=== PATIENT | male | born 1950 | race African-American/Black ===

== ENCOUNTER → 2016-10-03 | Outpatient (CLI) | payer MEDICARE, MEDICAID ==
[~2016-10-03] VITALS: Ht 175.3 cm; Wt 90.7 kg
[~2016-10-03] MED LIST: DIPHENHYDRAMINE 50MG/ML VIAL IV ONE; DIPHENHYDRAMINE 50MG/ML VIAL IV SCH; DIPHENHYDRAMINE 50MG/ML VIAL ONE; FENTANYL CITRATE/PF 50MCG/ML 2ML VIAL IV ONE; FENTANYL CITRATE/PF 50MCG/ML 2ML VIAL IV SCH; FENTANYL CITRATE/PF 50MCG/ML 2ML VIAL ONE; LIDOCAINE HCL 1% 20ML VIAL (Pyxis) INJ ONE; SODIUM BICARBONATE 4.2% 5 MEQ/10 ML DISP.SYRIN IV ONE
[2016-10-03 10:34] VITALS: BP 111/68
[2016-10-03 10:46] VITALS: BP 115/69
[2016-10-03 11:00] VITALS: BP 125/65
[2016-10-03 11:12] VITALS: BP 104/62
== END | disposition home or self-care (01) ==
LOC: CT 09:47
PROVIDERS: ATTEND Internal Medicine Cardiovascular Disease
DX: R91.8 Other nonspecific abnormal finding of lung field (principal)
CPT/HCPCS: 32405; 71010; 71270; 77012; 88305; J3490; J1200; J3010

== ENCOUNTER 2019-07-04 06:52 | Emergency (ER) | payer MEDICARE, MEDICAID ==
[~2019-07-04] VITALS: Ht 177.8 cm; Wt 63.0 kg
[2019-07-04] MEDS ORDERED: CEFTRIAXONE SODIUM 1 G/VIAL IM ONE (08:15)
[2019-07-04] MEDS ORDERED: LIDOCAINE HCL 1% 20ML VIAL (Pyxis) INJ INFIL ONE (08:15)
[2019-07-04 09:55] VITALS: BP 106/71
== END 2019-07-04 10:11 | disposition home or self-care (01) ==
LOC: ER 06:52
DX: J18.9 Pneumonia, unspecified organism (principal); Z03.818 Encounter for observation for suspected exposure to other biological agents ruled out; M54.30 Sciatica, unspecified side; Z98.890 Other specified postprocedural states
CPT/HCPCS: 71045; 96372; 99283; J0696; J3490

== ENCOUNTER 2019-12-13 19:25 | Inpatient (IN) | payer MEDICARE, MEDICAID ==
[~2019-12-13] VITALS: Ht 165.1 cm; Wt 75.8 kg
[2019-12-13 19:25] VITALS: BP 93/63
[~2019-12-13 19:25] MED LIST changes: +ASPI-1497 MT; -DIPHENHYDRAMINE 50MG/ML VIAL IV ONE; -DIPHENHYDRAMINE 50MG/ML VIAL IV SCH; -DIPHENHYDRAMINE 50MG/ML VIAL ONE; -FENTANYL CITRATE/PF 50MCG/ML 2ML VIAL IV ONE; -FENTANYL CITRATE/PF 50MCG/ML 2ML VIAL IV SCH; -FENTANYL CITRATE/PF 50MCG/ML 2ML VIAL ONE; -LIDOCAINE HCL 1% 20ML VIAL (Pyxis) INJ ONE; -SODIUM BICARBONATE 4.2% 5 MEQ/10 ML DISP.SYRIN IV ONE
[2019-12-13 20:00] VITALS: BP 93/63
[2019-12-13] MEDS ORDERED: CLONIDINE 0.2MG TABLET PO PRN (20:30)
[2019-12-13] MEDS ORDERED: IPRATROPIUM/ALBUTEROL 0.5-3(2.5)MG/3ML NEB HHN PRN (20:30)
[2019-12-13] MEDS ORDERED: NALOXONE HCL 0.4 MG/ML 1ML VIAL IV PRN (20:30)
[2019-12-13] MEDS ORDERED: TRAMADOL 50MG TABLET PO PRN (20:30)
[2019-12-13] MEDS ORDERED: HYDROMORPHONE HCL/PF 2MG/ML CPJ IV PRN (20:30)
[2019-12-13] MEDS ORDERED: ONDANSETRON HCL 4MG/2ML INJ IV PRN (20:30)
[2019-12-13] MEDS ORDERED: OXYCODONE HCL/ACETAMINOPHEN 5/325MG TABLET PO PRN (20:30)
[2019-12-13] MEDS ORDERED: ACETAMINOPHEN 325MG TABLET PO PRN (20:30)
[2019-12-13] MEDS ORDERED: DIPHENHYDRAMINE 50MG/ML VIAL IV PRN (21:15)
[2019-12-13] MEDS: LACTULOSE 20G/30ML UDC PO SCH (21:44)
[2019-12-13] MEDS: GABAPENTIN 100MG CAPSULE PO SCH (21:44)
[2019-12-14] MEDS: IPRATROPIUM/ALBUTEROL 0.5-3(2.5)MG/3ML NEB HHN SCH ×4 (01:05→21:51)
[2019-12-14] MEDS: GABAPENTIN 100MG CAPSULE PO SCH ×3 (05:29→21:50)
[2019-12-14 06:39] LABS: HEMATOCRIT. 28.6 % (42.0-52.0); HEMOGLOBIN. 9.5 g/dL (14.0-18.0); MEAN CORPUSCULAR HEMOGLOBIN 29.4 pg (28.0-32.0); MEAN CORPUSCULAR VOLUME 88.8 fL (80.0-94.0); MEAN PLATELET VOLUME 8.9 fl (7.4-10.4); PLATELET 178 x1000/uL (130-400); RED BLOOD CELL COUNT 3.22 mill/uL (4.7-6.1); RED CELL DISTRIBUTION WIDTH 15.9 % (11.6-14.6)
[2019-12-14 06:50] LABS: CHLORIDE 110 mEq/L (98-107)
[2019-12-14 08:00] VITALS: BP 96/58
[2019-12-14] MEDS: LACTULOSE 20G/30ML UDC PO SCH ×4 (08:35→21:39)
[2019-12-14] MEDS: MIDODRINE HCL 2.5MG TABLET PO SCH ×3 (09:33→16:44)
[2019-12-14] MEDS: SODIUM HYPOCHLORITE 0.125% 473ML SOLUTION TOP SCH (09:35)
[2019-12-14] MEDS: LIDOCAINE 5% PATCH TOP SCH (09:50)
[2019-12-14 09:51] VITALS: BP 96/61
[2019-12-14] MEDS: HYDROCODONE/APAP 7.5/325MG 1 TAB TABLET PO PRN ×3 (09:51→22:47)
[2019-12-14 10:51] LABS: PLATELET ESTIMATE NORMAL
[2019-12-14] MEDS ORDERED: NA PHOS,M-B/NA PHOS,DI-BA ENEMA 118ML PR NR (11:15)
[2019-12-14 12:55] VITALS: BP 96/65
[2019-12-14] MEDS: DOCUSATE SODIUM 100MG CAPSULE PO SCH (16:44)
[2019-12-14 20:00] VITALS: BP 98/59
[2019-12-14] MEDS: POLYETHYLENE GLYCOL 3350 (17GM) 1 DOSE PACK PO SCH (21:44)
[2019-12-15] MEDS: IPRATROPIUM/ALBUTEROL 0.5-3(2.5)MG/3ML NEB HHN SCH ×4 (02:21→21:28)
[2019-12-15 06:06] LABS: HEMATOCRIT. 29.6 % (42.0-52.0); HEMOGLOBIN. 9.7 g/dL (14.0-18.0); MEAN CORPUSCULAR VOLUME 88.6 fL (80.0-94.0); MEAN PLATELET VOLUME 8.3 fl (7.4-10.4); PLATELET 218 x1000/uL (130-400); RED BLOOD CELL COUNT 3.34 mill/uL (4.7-6.1); RED CELL DISTRIBUTION WIDTH 15.8 % (11.6-14.6)
[2019-12-15 06:24] LABS: CHLORIDE 107 mEq/L (98-107)
[2019-12-15 06:33] LABS: TOTAL IRON BINDING CAPACITY 196 ug/dL (250-450)
[2019-12-15 06:37] LABS: PHOSPHORUS 3.6 mg/dL (2.5-4.9)
[2019-12-15 06:46] LABS: FOLIC ACID (FOLATE) SERUM >20 ng/mL ng/mL (>5.38)
[2019-12-15 06:58] LABS: VITAMIN B12 SERUM 1949 pg/mL (211-911)
[2019-12-15] MEDS: GABAPENTIN 100MG CAPSULE PO SCH ×3 (07:24→22:21)
[2019-12-15 07:50] LABS: FERRITIN 2248 ng/mL (22-322)
[2019-12-15 07:51] VITALS: BP 95/54
[2019-12-15] MEDS: MIDODRINE HCL 2.5MG TABLET PO SCH ×3 (09:17→16:15)
[2019-12-15] MEDS: DOCUSATE SODIUM 100MG CAPSULE PO SCH ×2 (09:17→16:15)
[2019-12-15] MEDS: LACTULOSE 20G/30ML UDC PO SCH ×2 (09:18→21:44)
[2019-12-15] MEDS: HYDROCODONE/APAP 7.5/325MG 1 TAB TABLET PO PRN ×2 (09:18→18:32)
[2019-12-15] MEDS: LIDOCAINE 5% PATCH TOP SCH (09:19)
[2019-12-15] MEDS: SODIUM HYPOCHLORITE 0.125% 473ML SOLUTION TOP SCH (09:20)
[2019-12-15] MEDS ORDERED: SORBITOL 70% SOLN 30ML PO NR (11:45)
[2019-12-15] MEDS ORDERED: MAGNESIUM CITRATE 300ML SOLUTION PO NR (13:00)
[2019-12-15] MEDS ORDERED: HYDROCORTISONE 1% RECTAL CREAM 30GM PR PRN (14:30)
[2019-12-15 18:18] LABS: PLATELET ESTIMATE NORMAL
[2019-12-15 20:00] VITALS: BP 97/52
[2019-12-15] MEDS ORDERED: NA PHOS,M-B/NA PHOS,DI-BA ENEMA 118ML PR NR (20:00)
[2019-12-15] MEDS: POLYETHYLENE GLYCOL 3350 (17GM) 1 DOSE PACK PO SCH (21:06)
[2019-12-15] MEDS ORDERED: MAGNESIUM CITRATE 300ML SOLUTION PO PRN (22:00)
[2019-12-15] MEDS: HEMORRHOIDAL SUPP PR SCH (22:23)
[2019-12-16] MEDS: HYDROCODONE/APAP 7.5/325MG 1 TAB TABLET PO PRN ×4 (00:26→19:32)
[2019-12-16] MEDS: IPRATROPIUM/ALBUTEROL 0.5-3(2.5)MG/3ML NEB HHN SCH ×4 (02:27→21:18)
[2019-12-16 06:53] LABS: CHLORIDE 107 mEq/L (98-107)
[2019-12-16] MEDS: GABAPENTIN 100MG CAPSULE PO SCH ×3 (07:00→21:09)
[2019-12-16 07:08] LABS: HEMATOCRIT. 27.7 % (42.0-52.0); HEMOGLOBIN. 9.1 g/dL (14.0-18.0); MEAN CORPUSCULAR HEMOGLOBIN 29.2 pg (28.0-32.0); MEAN CORPUSCULAR VOLUME 88.6 fL (80.0-94.0); MEAN PLATELET VOLUME 8.7 fl (7.4-10.4); PLATELET 263 x1000/uL (130-400); RED BLOOD CELL COUNT 3.12 mill/uL (4.7-6.1); RED CELL DISTRIBUTION WIDTH 16.2 % (11.6-14.6)
[2019-12-16 07:49] VITALS: BP 88/48
[2019-12-16] MEDS: DOCUSATE SODIUM 100MG CAPSULE PO SCH ×2 (08:05→18:08)
[2019-12-16] MEDS: LIDOCAINE 5% PATCH TOP SCH (08:05)
[2019-12-16] MEDS: MIDODRINE HCL 2.5MG TABLET PO SCH ×3 (08:05→18:09)
[2019-12-16] MEDS: HEMORRHOIDAL SUPP PR SCH ×2 (08:06→21:09)
[2019-12-16] MEDS: LACTULOSE 20G/30ML UDC PO SCH ×2 (08:06→21:00)
[2019-12-16] MEDS: SODIUM HYPOCHLORITE 0.125% 473ML SOLUTION TOP SCH (09:00)
[2019-12-16 11:54] LABS: NUCLEATED RED BLOOD CELLS 2 /100 WBC; PLATELET ESTIMATE NORMAL
[2019-12-16] MEDS ORDERED: SIMETHICONE 80MG TABLET CHEW PO PRN (12:15)
[2019-12-16 20:00] VITALS: BP 99/57
[2019-12-16] MEDS: POLYETHYLENE GLYCOL 3350 (17GM) 1 DOSE PACK PO SCH (21:09)
[2019-12-17] MEDS: IPRATROPIUM/ALBUTEROL 0.5-3(2.5)MG/3ML NEB HHN SCH ×4 (01:34→20:58)
[2019-12-17] MEDS: HYDROCODONE/APAP 7.5/325MG 1 TAB TABLET PO PRN ×3 (02:06→14:12)
[2019-12-17] MEDS: GABAPENTIN 100MG CAPSULE PO SCH ×3 (06:09→21:34)
[2019-12-17 08:10] VITALS: BP 86/51
[2019-12-17] MEDS: HEMORRHOIDAL SUPP PR SCH ×2 (08:18→22:07)
[2019-12-17] MEDS: MIDODRINE HCL 2.5MG TABLET PO SCH (08:18)
[2019-12-17] MEDS: LACTULOSE 20G/30ML UDC PO SCH ×2 (08:19→21:00)
[2019-12-17] MEDS: DOCUSATE SODIUM 100MG CAPSULE PO SCH ×2 (08:19→17:08)
[2019-12-17] MEDS: LIDOCAINE 5% PATCH TOP SCH (08:19)
[2019-12-17] MEDS: SODIUM HYPOCHLORITE 0.125% 473ML SOLUTION TOP SCH (08:25)
[2019-12-17] MEDS ORDERED: BISACODYL 10MG SUPP PR SCH (09:30)
[2019-12-17] MEDS ORDERED: SORBITOL 70% SOLN 30ML PO SCH (09:30)
[2019-12-17] MEDS: MIDODRINE HCL 5MG TABLET PO SCH ×2 (14:07→17:08)
[2019-12-17 20:00] VITALS: BP 93/57
[2019-12-17] MEDS: POLYETHYLENE GLYCOL 3350 (17GM) 1 DOSE PACK PO SCH (21:00)
[2019-12-18] MEDS: IPRATROPIUM/ALBUTEROL 0.5-3(2.5)MG/3ML NEB HHN SCH ×4 (01:29→21:46)
[2019-12-18] MEDS: GABAPENTIN 100MG CAPSULE PO SCH ×3 (05:58→21:31)
[2019-12-18] MEDS: HYDROCODONE/APAP 7.5/325MG 1 TAB TABLET PO PRN ×3 (06:20→20:21)
[2019-12-18 06:37] LABS: HEMATOCRIT. 28.9 % (42.0-52.0); HEMOGLOBIN. 10.1 g/dL (14.0-18.0); MEAN CORPUSCULAR HEMOGLOBIN 30.9 pg (28.0-32.0); MEAN PLATELET VOLUME 8.1 fl (7.4-10.4); PLATELET 353 x1000/uL (130-400); RED BLOOD CELL COUNT 3.25 mill/uL (4.7-6.1)
[2019-12-18 06:44] LABS: CHLORIDE 108 mEq/L (98-107)
[2019-12-18 07:07] LABS: PHOSPHORUS 3.5 mg/dL (2.5-4.9)
[2019-12-18 08:00] VITALS: BP 86/54
[2019-12-18] MEDS: DOCUSATE SODIUM 100MG CAPSULE PO SCH ×2 (09:00→16:56)
[2019-12-18] MEDS: SODIUM HYPOCHLORITE 0.125% 473ML SOLUTION TOP SCH (09:00)
[2019-12-18] MEDS: LACTULOSE 20G/30ML UDC PO SCH ×2 (09:00→20:23)
[2019-12-18] MEDS: LIDOCAINE 5% PATCH TOP SCH (10:10)
[2019-12-18] MEDS: MIDODRINE HCL 5MG TABLET PO SCH ×3 (10:11→16:56)
[2019-12-18] MEDS: HEMORRHOIDAL SUPP PR SCH ×2 (10:11→20:21)
[2019-12-18] MEDS ORDERED: MORPHINE SULFATE 2 MG/ML CPJ (NOT FOR IM USE) IV NR (11:00)
[2019-12-18 20:00] VITALS: BP 97/60
[2019-12-18] MEDS: POLYETHYLENE GLYCOL 3350 (17GM) 1 DOSE PACK PO SCH (20:20)
[2019-12-18 22:44] LABS: PLATELET ESTIMATE NORMAL
[2019-12-19] MEDS: IPRATROPIUM/ALBUTEROL 0.5-3(2.5)MG/3ML NEB HHN SCH ×4 (01:15→13:24)
[2019-12-19] MEDS: GABAPENTIN 100MG CAPSULE PO SCH ×3 (05:27→21:11)
[2019-12-19 08:00] VITALS: BP 99/65
[2019-12-19] MEDS: DOCUSATE SODIUM 100MG CAPSULE PO SCH ×2 (08:48→17:53)
[2019-12-19] MEDS: MIDODRINE HCL 5MG TABLET PO SCH ×3 (08:48→17:53)
[2019-12-19] MEDS: LIDOCAINE 5% PATCH TOP SCH (08:49)
[2019-12-19] MEDS: HYDROCODONE/APAP 7.5/325MG 1 TAB TABLET PO PRN ×3 (08:49→21:12)
[2019-12-19] MEDS: LACTULOSE 20G/30ML UDC PO SCH ×2 (09:00→21:11)
[2019-12-19] MEDS: SODIUM HYPOCHLORITE 0.125% 473ML SOLUTION TOP SCH (12:13)
[2019-12-19] MEDS: HEMORRHOIDAL SUPP PR SCH ×2 (12:15→21:11)
[2019-12-19 13:06] LABS: 25-HYDROXY VITAMIN D3 32 ng/mL (.)
[2019-12-19 15:10] VITALS: BP 95/64
[2019-12-19 17:48] VITALS: BP 108/62
[2019-12-19 20:00] VITALS: BP 102/63
[2019-12-19] MEDS: POLYETHYLENE GLYCOL 3350 (17GM) 1 DOSE PACK PO SCH (20:31)
[2019-12-20] MEDS: IPRATROPIUM/ALBUTEROL 0.5-3(2.5)MG/3ML NEB HHN SCH ×5 (01:15→19:58)
[2019-12-20] MEDS: GABAPENTIN 100MG CAPSULE PO SCH ×3 (06:09→21:54)
[2019-12-20] MEDS: HYDROCODONE/APAP 7.5/325MG 1 TAB TABLET PO PRN ×3 (06:13→21:56)
[2019-12-20 06:35] LABS: HEMOGLOBIN. 8.5 g/dL (14.0-18.0); MEAN CORPUSCULAR HEMOGLOBIN 28.9 pg (28.0-32.0); MEAN CORPUSCULAR VOLUME 87.9 fL (80.0-94.0); MEAN PLATELET VOLUME 8.2 fl (7.4-10.4); PLATELET 379 x1000/uL (130-400); RED BLOOD CELL COUNT 2.95 mill/uL (4.7-6.1); RED CELL DISTRIBUTION WIDTH 15.7 % (11.6-14.6)
[2019-12-20 07:28] LABS: CHLORIDE 109 mEq/L (98-107)
[2019-12-20 07:35] LABS: PHOSPHORUS 3.9 mg/dL (2.5-4.9)
[2019-12-20 08:00] VITALS: BP 93/56
[2019-12-20] MEDS: MIDODRINE HCL 5MG TABLET PO SCH ×3 (08:31→16:05)
[2019-12-20] MEDS: DOCUSATE SODIUM 100MG CAPSULE PO SCH ×2 (08:31→16:05)
[2019-12-20] MEDS: HEMORRHOIDAL SUPP PR SCH ×2 (08:31→21:00)
[2019-12-20] MEDS: LACTULOSE 20G/30ML UDC PO SCH ×5 (08:31→21:00)
[2019-12-20] MEDS: LIDOCAINE 5% PATCH TOP SCH (08:32)
[2019-12-20] MEDS: SODIUM HYPOCHLORITE 0.125% 473ML SOLUTION TOP SCH (08:32)
[2019-12-20] MEDS ORDERED: BISACODYL 10MG SUPP PR NR (09:30)
[2019-12-20] MEDS ORDERED: MINERAL OIL ENEMA 133ML PR NR (14:00)
[2019-12-20 20:00] VITALS: BP 99/69
[2019-12-20] MEDS: POLYETHYLENE GLYCOL 3350 (17GM) 1 DOSE PACK PO SCH (21:00)
[2019-12-20 23:39] LABS: PLATELET ESTIMATE NORMAL
[2019-12-21] MEDS: IPRATROPIUM/ALBUTEROL 0.5-3(2.5)MG/3ML NEB HHN SCH ×4 (00:42→20:19)
[2019-12-21] MEDS: GABAPENTIN 100MG CAPSULE PO SCH ×3 (06:21→21:47)
[2019-12-21 07:01] LABS: CHLORIDE 106 mEq/L (98-107)
[2019-12-21 07:11] LABS: PHOSPHORUS 3.8 mg/dL (2.5-4.9)
[2019-12-21 07:20] VITALS: BP 106/72
[2019-12-21 07:23] LABS: HEMATOCRIT. 28.8 % (42.0-52.0); HEMOGLOBIN. 9.6 g/dL (14.0-18.0); MEAN CORPUSCULAR HEMOGLOBIN 29.8 pg (28.0-32.0); MEAN CORPUSCULAR VOLUME 89.5 fL (80.0-94.0); MEAN PLATELET VOLUME 8.6 fl (7.4-10.4); PLATELET 431 x1000/uL (130-400); RED BLOOD CELL COUNT 3.21 mill/uL (4.7-6.1); RED CELL DISTRIBUTION WIDTH 16.2 % (11.6-14.6)
[2019-12-21] MEDS: LACTULOSE 20G/30ML UDC PO SCH (08:40)
[2019-12-21] MEDS: DOCUSATE SODIUM 100MG CAPSULE PO SCH ×2 (08:42→18:14)
[2019-12-21] MEDS: HYDROCODONE/APAP 7.5/325MG 1 TAB TABLET PO PRN ×2 (08:49→18:17)
[2019-12-21] MEDS: MIDODRINE HCL 5MG TABLET PO SCH ×3 (08:50→18:15)
[2019-12-21] MEDS: LIDOCAINE 5% PATCH TOP SCH (08:50)
[2019-12-21] MEDS: SODIUM HYPOCHLORITE 0.125% 473ML SOLUTION TOP SCH (09:00)
[2019-12-21] MEDS: HEMORRHOIDAL SUPP PR SCH ×2 (09:00→21:52)
[2019-12-21] MEDS ORDERED: BISACODYL 10MG SUPP PR NR (11:15)
[2019-12-21 12:16] LABS: PLATELET ESTIMATE INCREASED
[2019-12-21] MEDS ORDERED: SORBITOL 70% SOLN 30ML PO SCH (13:30)
[2019-12-21] MEDS ORDERED: SORBITOL 70% SOLN 30ML PO NR (13:45)
[2019-12-21 20:00] VITALS: BP 94/63
[2019-12-21] MEDS: POLYETHYLENE GLYCOL 3350 (17GM) 1 DOSE PACK PO SCH (21:47)
[2019-12-22] MEDS: HYDROCODONE/APAP 7.5/325MG 1 TAB TABLET PO PRN ×3 (01:23→14:15)
[2019-12-22] MEDS: IPRATROPIUM/ALBUTEROL 0.5-3(2.5)MG/3ML NEB HHN SCH ×2 (01:36→07:50)
[2019-12-22] MEDS: GABAPENTIN 100MG CAPSULE PO SCH ×2 (06:10→14:15)
[2019-12-22 08:00] VITALS: BP 96/62
[2019-12-22] MEDS: HEMORRHOIDAL SUPP PR SCH (08:22)
[2019-12-22] MEDS: LIDOCAINE 5% PATCH TOP SCH (08:22)
[2019-12-22] MEDS: MIDODRINE HCL 5MG TABLET PO SCH ×2 (08:22→14:14)
[2019-12-22] MEDS: DOCUSATE SODIUM 100MG CAPSULE PO SCH (08:22)
[2019-12-22] MEDS: SODIUM HYPOCHLORITE 0.125% 473ML SOLUTION TOP SCH (08:23)
[2019-12-22] MEDS ORDERED: MIDO5TAB4 PO (09:34)
[2019-12-22] MEDS ORDERED: POLY17PO3 PO (09:34)
[2019-12-22] MEDS ORDERED: NALO4SPR BOTHNSTRLS (09:34)
[2019-12-22] MEDS ORDERED: GABA-529 PO (09:34)
[2019-12-22] MEDS ORDERED: HYDR-4005 PO (09:34)
[2019-12-22 13:03] VITALS: BP 93/62
[2019-12-22 14:15] VITALS: BP 93/62
== END 2019-12-22 14:45 | disposition home health service (06) | DRG 947 ==
PROVIDERS: ADMIT Physical Medicine & Rehabilitation Spinal Cord Injury Medicine; ATTEND Internal Medicine
DX: R53.81 Other malaise (principal); J18.9 Pneumonia, unspecified organism; E87.1 Hypo-osmolality and hyponatremia; C34.90 Malignant neoplasm of unspecified part of unspecified bronchus or lung; G13.0 Paraneoplastic neuromyopathy and neuropathy; D64.9 Anemia, unspecified; G89.29 Other chronic pain; M54.5 Low back pain; N18.9 Chronic kidney disease, unspecified; R26.9 Unspecified abnormalities of gait and mobility
CPT/HCPCS: 36415; 72100; 73030; 74018; 80048; 80053; 80076; 82306; 82607; 82728; 82746; 83540; 83550; 83735; 83935; 84100; 84134; 85025; 92610; 93970; 94640; 97110; 97112; 97116; 97162; 97166; 97530; 97535; J2270

== ENCOUNTER 2020-02-16 09:46 | Emergency (ER) | payer MEDICARE, MEDICAID ==
[~2020-02-16] VITALS: Ht 175.3 cm; Wt 77.0 kg
[~2020-02-16 09:46] MED LIST changes: +GABA-529 PO; +HYDR-4005 PO; +MIDO5TAB4 PO; +NALO4SPR BOTHNSTRLS; +POLY17PO3 PO
[2020-02-16] MEDS ORDERED: ACETAMINOPHEN 325MG TABLET PO ONE (10:00)
[2020-02-16 12:44] LABS: BASOPHILS % 0.8 % (0.0-2.0); EOSINOPHILS % 5.7 % (0.0-5.0); HEMATOCRIT. 33.2 % (42.0-52.0); HEMOGLOBIN. 10.9 g/dL (14.0-18.0); LYMPHOCYTES % 12.7 % (20.0-50.0); MEAN CORPUSCULAR HEMOGLOBIN 29.9 pg (28.0-32.0); MEAN CORPUSCULAR VOLUME 91.3 fL (80.0-94.0); MEAN PLATELET VOLUME 8.4 fl (7.4-10.4); MONOCYTES % 2.5 % (2.0-8.0); NEUTROPHILS % 78.3 % (40.0-76.0); PLATELET 205 x1000/uL (130-400); RED BLOOD CELL COUNT 3.64 mill/uL (4.7-6.1); RED CELL DISTRIBUTION WIDTH 17.5 % (11.6-14.6)
[2020-02-16 12:54] LABS: CHLORIDE 111 mEq/L (98-107)
[2020-02-16 12:58] LABS: D-DIMER 3.07 mg/L FEU (<0.50); ETHANOL BLOOD < 10 mg/dL; PROTHROMBIN TIME 10.3 sec (9.6-11.0)
[2020-02-16 13:03] LABS: CREATINE KINASE 39 IU/L (39-308)
[2020-02-16 13:11] LABS: C REACTIVE PROTEIN QUANT 9.7 mg/L (0.0-3.0)
[2020-02-16] MEDS ORDERED: AZITHROMYCIN 500 MG in DEXT 5% WATER 250 ML IV STA (13:23)
[2020-02-16] MEDS ORDERED: PANTOPRAZOLE SODIUM 40 MG/VIAL IV ONE (13:30)
[2020-02-16] MEDS ORDERED: ONDANSETRON HCL 4MG/2ML INJ IV ONE (13:30)
[2020-02-16] MEDS ORDERED: CEFTRIAXONE 1 G PREMIX 50 ML IV ONE (13:30)
[2020-02-16 14:31] LABS: BG FRACTION INSPIRED OXYGEN 21; BG HCO3 ACT 12.5 mmol/L (22.0-26.0); BG METHEMOGLOBIN 0.3 % (0.0-1.5); BG OXYGEN SATURATION 88.9 % (92.0-98.5); BG OXYHEMOGLOBIN 87.7 % (94.0-97.0); BG PCO2 27.8 mmHg (35.0-45.0); BG PH 7.269 (7.350-7.450); BG PO2 60.7 mmHg (75.0-100.0); BG SAMPLE SITE RIGHT BRACHIAL; BG TOTAL HEMOGLOBIN 11.2 g/dL (12.0-18.0); BG VENT MODE ROOM AIR
[2020-02-16] MEDS ORDERED: DEXAMETHASONE 10 MG/ML VIAL IV ONE (14:45)
[2020-02-16] MEDS ORDERED: BENZONATATE 100MG CAPSULE PO PRN (16:45)
[2020-02-16] MEDS ORDERED: ACETAMINOPHEN 325MG TABLET PO PRN (16:45)
[2020-02-16] MEDS ORDERED: ONDANSETRON HCL 4MG/2ML INJ IV PRN (16:45)
[2020-02-16] MEDS ORDERED: ALBUTEROL 6.7GM HFA INHALER ORI SCH (17:00)
[2020-02-16 17:41] VITALS: BP 126/76
[2020-02-16 18:13] LABS: CLARITY URINE CLEAR (CLEAR); COLOR URINE YELLOW (YELLOW); KETONES URINE NEGATIVE (NEGATIVE); LEUKOCYTE ESTERASE URINE NEGATIVE (NEGATIVE); NITRITE URINE NEGATIVE (NEGATIVE); OCCULT BLOOD URINE NEGATIVE (NEGATIVE); PROTEIN URINE 1+ (NEGATIVE); SPECIFIC GRAVITY URINE 1.016 (1.005-1.030); UROBILINOGEN URINE 0.2 E.U./dL (0.2-1.0)
[2020-02-17] MEDS ORDERED: OMEPRAZOLE 20MG CAPSULE EXTENDED RELEASE PO SCH (07:50)
[2020-02-17] MEDS ORDERED: AZITHROMYCIN 250 MG TABLET PO SCH (14:00)
[2020-02-17] MEDS ORDERED: CEFTRIAXONE 1 G PREMIX 50 ML IV SCH (14:00)
== END 2020-02-16 20:23 | disposition left against medical advice (07) ==
LOC: ER 09:46 → EDBEDREQ 15:04 → ER 20:23 → CANBEDREQ 22:58
DX: J18.9 Pneumonia, unspecified organism (principal); Z20.828 Contact with and (suspected) exposure to other viral communicable diseases; E87.1 Hypo-osmolality and hyponatremia; E87.8 Other disorders of electrolyte and fluid balance, not elsewhere classified; D72.819 Decreased white blood cell count, unspecified; D64.9 Anemia, unspecified; Z85.118 Personal history of other malignant neoplasm of bronchus and lung; Z51.11 Encounter for antineoplastic chemotherapy; Z79.899 Other long term (current) drug therapy; Z79.82 Long term (current) use of aspirin
CPT/HCPCS: 36415; 36600; 71045; 80053; 80320; 81003; 82375; 82550; 82728; 82805; 83605; 83615; 83690; 83880; 84145; 84484; 85025; 85379; 85384; 85610; 86140; 86850; 86900; 86901; 87040; 87070; 87086; 87430; 87635; 93005; 94640; 96365; 96375; 99291; J0456; J0696; J1100; J2405; J7060; G0480